=== PATIENT | male | born 1950 ===

== ENCOUNTER 2019-06-28 08:34 | Emergency (ER) | payer MEDICARE ==
--- NOTE | 2019-06-28 08:49 | UC ---
Skin Complaint HPI - HPI Summary HPI Summary: rash left back x < 24 hours no itch slight pain had shngles immunization - History of Current Complaint Chief Complaint: UCRash Time Seen by Provider: 06/28/19 08:40 Stated Complaint: RASH Hx Obtained From: Patient Onset/Duration: Gradual Onset Skin Exposure Onset/Duration: Hours Ago Onset Severity: Mild Current Severity: Mild Pain Intensity: 2 Location: Discrete Character: Pain, Redness, Raised Aggravating Factor(s): Touch Alleviating Factor(s): Nothing Associated Signs & Symptoms: Positive: Rash. Negative: Nausea, Vomiting, Numbness, Thirst, Diaphoresis, Weakness, Pallor, Difficulty Breathing, Fever, Chills, Cough, Wheezing, Chest Pain, Hoarseness, Throat Tightening, Abdominal Pain, Lightheadedness, Syncope, Drainage, Bruising, Tenderness, Red Streaks, Joint Swelling - Allergy/Home Medications Allergies/Adverse Reactions: Allergies Allergy/AdvReac Type Severity Reaction Status Date / Time No Known Allergies Allergy Verified 06/28/19 08:40 Home Medications: Home Medications Pravastatin Sodium 20 mg PO DAILY 06/28/19 [History Confirmed 06/28/19] PMH/Surg Hx/FS Hx/Imm Hx Previously Healthy: Yes - Surgical History Surgical History: Yes Surgery Procedure, Year, and Place: Deviated septum. REPAIR OF LACERATION ON ARM-2003. 12/25/13 Hernia operation - Family History Known Family History: Positive: Cardiac Disease, Hypertension, Other - Ca - Social History Alcohol Use: Occasionally Alcohol Amount: 10 CANS PER WEEK Substance Use Type: None Smoking Status (MU): Former Smoker Type: Cigarettes Amount Used/How Often: 1-2 PPD X 15 YEARS Have You Smoked in the Last Year: No When Did the Patient Quit Smoking/Using Tobacco: 1999 - Immunization History Most Recent Influenza Vaccination: fall 2012 Most Recent Pneumonia Vaccination: yes - not sure when Review of Systems All Other Systems Reviewed And Are Negative: Yes Constitutional: Positive: Negative Skin: Positive: Rash Eyes: Positive: Negative ENT: Positive: Negative Respiratory: Positive: Negative Cardiovascular: Positive: Negative Gastrointestinal: Positive: Negative Genitourinary: Positive: Negative Motor: Positive: Negative Neurovascular: Positive: Negative Musculoskeletal: Positive: Negative Neurological: Positive: Negative Psychological: Positive: Negative Physical Exam Triage Information Reviewed: Yes Appearance: Well-Appearing, No Pain Distress, Well-Nourished Vital Signs: Initial Vital Signs Temp 98 F 06/28/19 08:37 Pulse 98 06/28/19 08:37 Resp 17 06/28/19 08:37 BP 137/91 06/28/19 08:37 Pulse Ox 100 06/28/19 08:37 Vital Signs Reviewed: Yes Eyes: Positive: Conjunctiva Clear ENT: Positive: Hearing grossly normal. Negative: Nasal congestion, Nasal drainage, Trismus, Muffled voice, Hoarse voice Neck: Positive: Supple, Nontender Respiratory: Positive: Lungs clear, Normal breath sounds, No respiratory distress, No accessory muscle use Cardiovascular: Positive: RRR, No Murmur, Pulses Normal Abdominal Exam: Normal Bowel Sounds: Positive: Present Musculoskeletal: Positive: ROM Intact, No Edema Neurological: Positive: Alert Psychological: Positive: Normal Response To Family Skin Exam: Other - three clusters of vesicles left T-4 dermatome Course/Dx - Diagnoses Provider Diagnosis: Shingles, Elevated BP without diagnosis of hypertension Discharge ED - Sign-Out/Discharge Documenting (check all that apply): Patient Departure All imaging exams completed and their final reports reviewed: No Studies - Discharge Plan Condition: Stable Disposition: HOME Prescriptions: Famciclovir(NF) [Famvir(NF)] 500 mg PO TID #21 tab Patient Education Materials: Shingles (ED) Referrals: Pawan Lindquist MD [Primary Care Provider] - 2 Weeks (BP recheck in 2-12 weeks / pre hypertension) - Billing Disposition and Condition Condition: STABLE Disposition: Home
[2019-06-28 09:00] VITALS: BP 137/91
== END 2019-06-28 08:58 | disposition home or self-care (01) ==
LOC: UCEAST 08:34
DX: B02.9 Zoster without complications (principal); R03.0 Elevated blood-pressure reading, without diagnosis of hypertension; Z87.891 Personal history of nicotine dependence
CPT/HCPCS: 99212; G0463